=== PATIENT | male | born 1950 | race Caucasian/White ===

== ENCOUNTER 2022-06-04 19:43 | Inpatient (IN) ==
[2022-06-04] MEDS ORDERED: ALBUT/IPRATROP 3MG/0.5MG NEB 3 ML VIAL NEB ONE (20:25)
[2022-06-04] MEDS ORDERED: methylPREDNISolone 125 MG/2 ML VIAL IV STA (20:25)
--- NOTE | 2022-06-04 20:27 | XRay Report ---
XR chest 1V portable HISTORY: Shortness of breath. Chest pain, nonspecific COMPARISON: Chest 07/31/2010. FINDINGS: There are suture material noted within the right lung apex. No pneumothorax. The cardiac si lhouette is normal in size. Calcified granuloma within the right lower lobe. The lungs are hyperexpan ded with apical predominant emphysematous changes. Symmetric hazy densities within the upper lobes is likely due to overlying soft tissue. Otherwise, no new focal lung consolidations to suggest a pneumo april. No evidence for pulmonary edema. No pleural effusions. IMPRESSION: 1. Hyperexpanded lungs with emphysematous changes. 2. Postoperative changes noted within the right lung apex. No definite pneumothorax. ACT 112: Negative or not required by law. Electronically signed by: Jesse Stubbs M.D. 06/04/2022 8:24 PM
[2022-06-04 20:40] LABS: Basophils # (auto) 0.04 K/uL (0-0.2); Basophils % (auto) 0.5 %; Eosinophils # (auto) 0.06 K/uL (0-0.50); Eosinophils % (auto) 0.7 %; Hematocrit (blood only) 42.9 % (42.0-52.0); Hemoglobin 14.8 g/dl (14.0-18.0); Immature Granulocytes # (auto) 0.03 K/uL (0.01-0.20); Immature Granulocytes % (auto) 0.4 %; Lymphocytes % (auto) 8.6 %; Mean Corpuscular Hemoglobin 32.2 pg (25.0-34.0); Mean Corpuscular Hgb Conc 34.5 g/dL (32.0-36.0); Mean Corpuscular Volume 93.5 fL (80.0-100.0); Monocytes # (auto) 0.35 K/uL (0.11-0.59); Monocytes % (auto) 4.3 %; Neutrophils # (auto) 6.98 K/uL (1.40-6.50); Neutrophils % (auto) 85.5 %; Platelet Count 141 K/uL (130-400); RDW Coefficient of Variation 12.1 % (11.5-14.5); RDW Standard Deviation 41.8 fL (36.4-46.3); Red Blood Count 4.59 M/uL (4.70-6.10); White Blood Count 8.16 K/ul (4.8-10.8)
[2022-06-04 20:57] LABS: Anion Gap 9 (3-11); BUN Creatinine Ratio 15.6 (10-20); Blood Urea Nitrogen 15 mg/dl (6-23); Calcium 8.9 mg/dl (8.6-10.3); Carbon Dioxide 26 mmol/L (21-32); Chloride 102 mmol/L (98-107); Est GFR (African American) 91.8 ml/min; Est GFR (Non-African American) 79.2 ml/min; Glucose 109 mg/dl (70-99(Fasting)); Lipase 23 U/L (11-82); Potassium 4.2 mmol/L (3.5-5.1); Sodium 137 mmol/L (136-145)
[2022-06-04 21:04] LABS: Troponin I High Sensitivity 9.3 pg/ml (0-20)
[2022-06-04 21:15] LABS: Base Excess VBG 3.7 mEq/L; HCO3 VBG 30 mmol/L; Oxygen Saturation VBG 75.8 %; PCO2 VBG 49 mmHg (38-50); PO2 VBG 45 mmHg; pH VBG 7.39 (7.36-7.41)
--- NOTE | 2022-06-04 23:30 | Emergency Department Note ---
History of Present Illness General Chief Complaint: Shortness of Breath/Dyspnea Time Seen by Provider: 06/04/22 19:53 History of Present Illness Provider Complaint: shortness of breath Onset (ago): day(s) (1) Severity: severe Consistency/Duration: + progressively worsening Relieved By: + nothing Exacerbated By: + exertion and + coughing Context: + occurred during exertion Known history of: COPD and asthma Associated symptoms: + cough, + wheezing, + sputum production and + chest congestion Treatment prior to arrival: NIPPV Related Data Home oxygen amount: none (Patient was 70% on room air when EMS arrived per EMS) Home Medications Medication Instructions Recorded Confirmed Type None (Patient States No Home Meds) ##0 07/22/10 History Acetaminophen (Tylenol) 650 mg PO Q4H PRN #100 Tabs 08/01/10 Rx Albuterol (Proventil Hfa) 1 - 2 puff inhalation Q4HR PRN #1 08/01/10 Rx unit Ipratropium/Albuterol (Combivent *) 2 puff inhalation QID #1 unit 08/01/10 Rx Nicotine (Nicoderm Cq 14MG Patch) 1 patch transdermal QAM #30 patches 08/01/10 Rx OXYCODONE/ACETAMINOPHEN 5MG/325MG 1 - 2 tabs PO Q3-4HR PRN #30 Tabs 08/01/10 Rx (PERCOCET 5MG/325MG) Sodium Chloride ([place] Nasal) 1 spry NA PRN PRN #1 unit 08/01/10 Rx Allergies Allergy/AdvReac Type Severity Reaction Status Date / Time No Known Allergies Allergy Unverified 06/04/22 23:02 Past Med/Surg History Medical History (Updated 06/04/22 @ 23:30 by Charles Eddy) COPD (chronic obstructive pulmonary disease) No pertinent family history Surgical History (Updated 06/04/22 @ 23:23 by Charles Eddy) No pertinent past surgical history Social History Smoking Status: Current every day smoker Tobacco Type: Cigarettes Preferred Language: Macedonian Feels Safe at Home: Yes Physical Exam Vital Signs: Vital Signs - 24 hr 06/04/22 19:59 06/04/22 19:59 06/04/22 19:59 Temperature 36.9 C Temperature Source Oral Pulse Rate 121 H Pulse Rate [Apical ] Pulse Rhythm [Apic al] Pulse Strength [Ap ical] Respiratory Rate 28 H Respiratory Effort / Characteristics Short of Breath SO B on Exertion Respiratory Depth Respiratory Patter n Blood Pressure 148/96 H Blood Pressure [Ri ght Arm] Blood Pressure Blank n 113 Blood Pressure Blank n [Right Arm] Pulse Oximetry 96 96 Oxygen Delivery Me thod BiPAP BiPAP Fraction of Inspir ed Oxygen 40 40 SaO2/FiO2 Ratio 240 Sepsis Recent Feve r Within 48 Hours No Sepsis New/Unexpla ined Change in Men romaine Status No Sepsis Action Take n by Nursing Physician Notified 06/04/22 20:09 06/04/22 20:10 06/04/22 20:59 Temperature Temperature Source Pulse Rate Pulse Rate [Apical ] 122 H 104 H Pulse Rhythm [Apic al] Regular Pulse Strength [Ap ical] Normal Respiratory Rate 19 25 H Respiratory Effort / Characteristics Non-Labored Sponta neous Non-Labored Sponta neous Respiratory Depth Normal Respiratory Patter n Blood Pressure Blood Pressure [Ri ght Arm] 124/94 Blood Pressure Blank n Blood Pressure Blank n [Right Arm] 104 Pulse Oximetry 96 97 98 Oxygen Delivery Me thod BiPAP Nasal CPAP BiPAP Fraction of Inspir ed Oxygen 40 40 SaO2/FiO2 Ratio 240 Sepsis Recent Feve r Within 48 Hours Sepsis New/Unexpla ined Change in Men romaine Status Sepsis Action Take n by Nursing 06/04/22 21:07 06/04/22 20:39 Temperature Temperature Source Pulse Rate 104 H 120 H Pulse Rate [Apical ] Pulse Rhythm [Apic al] Pulse Strength [Ap ical] Respiratory Rate 26 H Respiratory Effort / Characteristics Spontaneous Respiratory Depth Normal Respiratory Patter n Tachypnea Blood Pressure Blood Pressure [Ri ght Arm] Blood Pressure Blank n Blood Pressure Blank n [Right Arm] Pulse Oximetry 96 Oxygen Delivery Me thod Fraction of Inspir ed Oxygen 40 SaO2/FiO2 Ratio Sepsis Recent Feve r Within 48 Hours Sepsis New/Unexpla ined Change in Men romaine Status Sepsis Action Take n by Nursing Physical Exam: Physical Exam GENERAL: Patient on BiPAP. HENT: Exam performed. - Head: Normocephalic and atraumatic. EYES: Conjunctivae and EOM are normal. Right eye exhibits no discharge. Left eye exhibits no discharge. No scleral icterus. NECK: Normal range of motion. Neck supple. CV: Normal rate, regular rhythm, normal heart sounds and intact distal pulses. There is no peripheral edema. Palpable radial pulses bue. PULM/CHEST: Diffuse expiratory wheezes. SKIN: Skin is warm and dry. He is not diaphoretic. Course Course 1952: The patient was evaluated in room B3. A complete history and physical exam was performed Cardiac monitoring: An order was placed for continuous cardiac monitoring. The monitor shows a rate of 100 with sinus rhythm interpreted by me Patient was continued on BiPAP. 2214: Vital signs stable on BiPAP. Status post 1 hour DuoNeb patient's respira tory rate has improved. [facility] Chest x-ray shows no infiltrate and labs including VBG within normal limits. Administered Medications Discontinued Medications Albuterol (Albut/Ipratrop 3mg/0.5mg Neb 3 Ml Vial) 12 ml NEB ONE ONE; Protocol Stop: 06/04/22 20:26 Last Admin: 06/04/22 20:57 Dose: 12 ml Documented By: AFTAB Methylprednisolone (Methylprednisolone 125 Mg/2 Ml Vial) 125 mg IV NOW STA Stop: 06/04/22 20:26 Last Admin: 06/04/22 20:40 Dose: 125 mg Documented By: TAMMY Medical Decision Making Laboratory Data Attestation: I reviewed the patient's lab results. 06/04/22 20:00 06/04/22 20:00 Lab Results 06/04/22 06/04/22 06/04/22 Range/Units 20:00 20:00 20:10 WBC 8.16 (4.8-10.8) K/ul RBC 4.59 L (4.70-6.10) M/uL Hgb 14.8 (14.0-18.0) g/dl Hct 42.9 (42.0-52.0) % MCV 93.5 (80.0-100.0) fL MCH 32.2 (25.0-34.0) pg MCHC 34.5 (32.0-36.0) g/dL RDW Std Deviation 41.8 (36.4-46.3) fL RDW Coeff of [place] 12.1 (11.5-14.5) % Plt Count 141 (130-400) K/uL MPV 10.0 (9.4-12.4) fL Immature Gran % (Auto) 0.4 % Neut % (Auto) 85.5 % Lymph % (Auto) 8.6 % [place] % (Auto) 4.3 % Eos % (Auto) 0.7 % Baso % (Auto) 0.5 % Neut # (Auto) 6.98 H (1.40-6.50) K/uL Lymph # (Auto) 0.70 L (1.2-3.4) K/uL [place] # (Auto) 0.35 (0.11-0.59) K/uL Eos # (Auto) 0.06 (0-0.50) K/uL Baso # (Auto) 0.04 (0-0.2) K/uL Immature Gran # (Auto) 0.03 (0.01-0.20) K/uL VBG pH (7.36-7.41) VBG pCO2 (38-50) mmHg VBG pO2 mmHg VBG HCO3 mmol/L VBG O2 Saturation % VBG Base Excess mEq/L Sodium 137 (136-145) mmol/L Potassium 4.2 (3.5-5.1) mmol/L Chloride 102 (98-107) mmol/L Carbon Dioxide 26 (21-32) mmol/L Anion Gap 9 (3-11) BUN 15 (6-23) mg/dl Creatinine 0.96 (0.6-1.4) mg/dl Est Cr Clr Drug Dosing Not Reportable Est GFR ( Amer) 91.8 ml/min Est GFR (Non-Af Amer) 79.2 ml/min BUN/Creatinine Ratio 15.6 (10-20) Glucose 109 H (70-99(Fasting)) mg/dl Calcium 8.9 (8.6-10.3) mg/dl Troponin I High Sens 9.3 (0-20) pg/ml Lipase 23 (11-82) U/L SARS-CoV-2, RNA, NAAT NEGATIVE (NEGATIVE) 06/04/22 Range/Units 21:06 WBC (4.8-10.8) K/ul RBC (4.70-6.10) M/uL Hgb (14.0-18.0) g/dl Hct (42.0-52.0) % MCV (80.0-100.0) fL MCH (25.0-34.0) pg MCHC (32.0-36.0) g/dL RDW Std Deviation (36.4-46.3) fL RDW Coeff of [place]ion (11.5-14.5) % Plt Count (130-400) K/uL MPV (9.4-12.4) fL Immature Gran % (Auto) % Neut % (Auto) % Lymph % (Auto) % [place] % (Auto) % Eos % (Auto) % Baso % (Auto) % Neut # (Auto) (1.40-6.50) K/uL Lymph # (Auto) (1.2-3.4) K/uL [place] # (Auto) (0.11-0.59) K/uL Eos # (Auto) (0-0.50) K/uL Baso # (Auto) (0-0.2) K/uL Immature Gran # (Auto) (0.01-0.20) K/uL VBG pH 7.39 (7.36-7.41) VBG pCO2 49 (38-50) mmHg VBG pO2 45 mmHg VBG HCO3 30 mmol/L VBG O2 Saturation 75.8 % VBG Base Excess 3.7 mEq/L Sodium (136-145) mmol/L Potassium (3.5-5.1) mmol/L Chloride (98-107) mmol/L Carbon Dioxide (21-32) mmol/L Anion Gap (3-11) BUN (6-23) mg/dl Creatinine (0.6-1.4) mg/dl Est Cr Clr Drug Dosing Est GFR ( Amer) ml/min Est GFR (Non-Af Amer) ml/min BUN/Creatinine Ratio (10-20) Glucose (70-99(Fasting)) mg/dl Calcium (8.6-10.3) mg/dl Troponin I High Sens (0-20) pg/ml Lipase (11-82) U/L SARS-CoV-2, RNA, NAAT (NEGATIVE) Imaging Data Radiologist's Impression: Chest X-Ray 06/04/22 20:06 XR chest 1V portable HISTORY: Shortness of breath. Chest pain, nonspecific COMPARISON: Chest 07/31/2010. FINDINGS: There are suture material noted within the right lung apex. No pneumothorax. The cardiac silhouette is normal in size. Calcified granuloma within the right lower lobe. The lungs are hyperexpanded with apical predominant emphysematous changes. Symmetric hazy densities within the upper lobes is likely due to overlying soft tissue. Otherwise, no new focal lung consolidations to suggest a pneumonia. No evidence for pulmonary edema. No pleural effusions. IMPRESSION: 1. Hyperexpanded lungs with emphysematous changes. 2. Postoperative changes noted within the right lung apex. No definite pneumothorax. ACT 112: Negative or not required by law. Electronically signed by: Jesse Stubbs M.D. 06/04/2022 8:24 PM [facility] Narrative 1952: The patient was evaluated in room B3. A complete history and physical exam was performed Cardiac monitoring: An order was placed for continuous cardiac monitoring. The monitor shows a rate of 100 with sinus rhythm interpreted by me Patient was continued on BiPAP. 2214: Vital signs stable on BiPAP. Status post 1 hour DuoNeb patient's respiratory rate has improved. [facility] Chest x-ray shows no infiltrate and labs including VBG within normal limits. Impression & Plan COPD (chronic obstructive pulmonary disease) Critical Care Time Critical Care Time: Yes Total Critical Care Time: 71 I have personally spent greater than 71 minutes of critical care time in the direct management of this patient. This includes bedside care, interpretation of diagnostic studies, and testing, discussion with consultants, patient, and family members, and other required patient management activities. This 71 minutes is in excess of all separately billable procedures. Discharge Plan Visit Data Chief Complaint: Shortness of Breath/Dyspnea ED Provider: Charles Eddy Discharge Problem: COPD (chronic obstructive pulmonary disease) Patient Disposition: Admitted As Inpatient Forms Stand Alone Forms: My [facility] Prescriptions Prescriptions: No Action None (Patient States No Home Meds) . Qty: 0 Acetaminophen (Tylenol) 325 MG tablet 650 mg PO Q4H PRNQty: 100 0RF Nicotine (Nicoderm Cq 14MG Patch) TRANSDERM SYS 1 patch Transdermal QAM Qty: 30 0RF OXYCODONE/ACETAMINOPHEN 5MG/325MG (PERCOCET 5MG/325MG) tablet 1 - 2 tabs PO Q3-4HR PRN Qty: 30 0RF Rx Instructions: PAIN Sodium Chloride ([place] Nasal) SPRAY 1 spry NA PRN PRNQty: 1 1RF Albuterol (Proventil Hfa) AEROSOL,SOLN 1 - 2 puff Inhalation Q4HR PRN Qty: 1 1RF Ipratropium/Albuterol (Combivent *) inhaler 2 puff Inhalation QID Qty: 1 2RF Referrals Referrals: Fawad Sheets MD [Primary Care Provider] -
[2022-06-05] MEDS ORDERED: POLYETHYLENE (MIRALAX) 17 GM PACK PO PRN (02:40)
[2022-06-05] MEDS ORDERED: DOXYCYCLINE HYCLATE 100 MG CAP PO STA (02:40)
[2022-06-05] MEDS ORDERED: NITROGLYCERIN SL 0.4 MG/TAB TAB SL PRN (02:40)
[2022-06-05] MEDS ORDERED: ALBUTEROL HFA 8 GM INHALER INH PRN (02:40)
[2022-06-05] MEDS ORDERED: Patient's HEIGHT &/or WEIGHT Needed SCH (03:00)
[2022-06-05] MEDS: MELATONIN 3 MG TAB PO PRN ×2 (03:02→20:16)
[2022-06-05] MEDS: methylPREDNISolone 40 MG in SYRINGE 0 ML IV SCH ×3 (06:10→21:23)
[2022-06-05 07:00] LABS: Hematocrit (blood only) 39.5 % (42.0-52.0); Hemoglobin 13.8 g/dl (14.0-18.0); Mean Corpuscular Hemoglobin 32.1 pg (25.0-34.0); Mean Corpuscular Hgb Conc 34.9 g/dL (32.0-36.0); Mean Corpuscular Volume 91.9 fL (80.0-100.0); Mean Platelet Volume 10.3 fL (9.4-12.4); Platelet Count 136 K/uL (130-400); RDW Coefficient of Variation 12.2 % (11.5-14.5); RDW Standard Deviation 40.9 fL (36.4-46.3); White Blood Count 10.55 K/ul (4.8-10.8)
[2022-06-05 07:08] LABS: BUN Creatinine Ratio 16.1 (10-20); Calcium 8.9 mg/dl (8.6-10.3); Creatinine Clr Calc Pharmacy 69.2 ml/min; Est GFR (African American) 100.6 ml/min; Est GFR (Non-African American) 86.8 ml/min; Magnesium 1.5 mg/dl (1.7-2.4); Potassium 4.2 mmol/L (3.5-5.1)
--- NOTE | 2022-06-05 07:18 | History and Physical Report ---
DATE OF ADMISSION: 06/05/2022. CHIEF COMPLAINT: Shortness of breath. HISTORY OF PRESENT ILLNESS: A 71-year-old male with past medical history significant for hyperlipidemia, COPD, ongoing tobacco abuse, complaints of shortness of breath. The patient does have some cold-like symptoms for the last few days, with dry cough. No fever, but today he got very severely short of breath, he was huffing and puffing, and he was brought in. When he was brought in he was saturating at 70%. He was placed on BiPAP, currently is taken off BiPAP and is resting comfortably. He is able to give his history, in the room. Denies any fevers, no nausea, had some headache and some sore throat when the BIPAP mask was on, but now he is feeling better. Denies any blurred visions, no earache. Appetite is down. No difficulty swallowing. He has some right sided chest discomfort. He says whenever his COPD acts up, he always has some chest discomfort on right side where some lung resection was done in the past. No abdominal pain. Normal bowel and bladder movements. No swelling in the legs. ALLERGIES: No known drug allergies. PAST MEDICAL HISTORY: As mentioned above. PAST SURGICAL HISTORY: Colonoscopy, left side of neck lump removed at age of 9 or 10, thoracoscopy with lung wedge biopsy for right upper lobe bleb formation x3, mechanical and chemical pleurodesis, lysis of apical adhesions in 2010. MEDICATIONS: The patient is on Tylenol, guanfacine 1 capsule p.o. t.i.d. p.r.n., albuterol 2 puffs inhalation every 4 hours p.r.n., ibuprofen p.r.n., Spiriva inhaler 1 capsule inhalation daily. FAMILY HISTORY: Significant for father has alcoholism. Mother has heart disorder. SOCIAL HISTORY: . He still smokes 5-6 cigarettes daily. Alcohol occasional. No drug use. REVIEW OF SYSTEMS: As per HPI. Rest of review of systems is negative. PHYSICAL EXAMINATION: GENERAL: The patient is of moderate build, not in acute distress. VITAL SIGNS: Temperature 36.9, pulse 99, respiratory rate 22, blood pressure 115/70, oxygen 99%. HEENT: Pupils equal, round and reactive to light. Oral mucosa dry. NECK: No JVD or neck masses. CARDIOVASCULAR: S1 and S2 heard. Regular rate and rhythm. No murmur, no gallop. RESPIRATORY SYSTEM: Normal AP diameter. Diminished bilateral breath sounds. No obvious wheezing or crackles. ABDOMEN: Soft, bowel sounds present, nontender, no distention. CENTRAL NERVOUS SYSTEM: Alert and oriented. Speech is clear. No facial droop. Obeys simple commands. Insight is okay. Moves extremities. EXTREMITIES: No edema, no erythema. LABORATORY DATA: WBC 8.1, hemoglobin 14.8, hematocrit 42.9, platelets 141. Venous blood gas, pH of 7.39, pCO2 of 49. Sodium 137, potassium 4.2, chloride 102, bicarbonate 26, BUN 15, creatinine 0.9, serum glucose 109, calcium 8.9. Troponin I high sensitivity 9.3. Lipase 23. SARS-CoV-2 rapid test negative. IMAGING DATA: Chest x-ray, no acute findings. ASSESSMENT AND PLAN: This is a 71-year-old male who presents with shortness of breath and hypoxia and chronic obstructive pulmonary disease exacerbation. 1. Shortness of breath and hypoxia, requiring oxygen, most likely secondary to chronic obstructive pulmonary disease exacerbation. Continue with IV Solu- Medrol 40 mg t.i.d., DuoNeb around the clock and p.r.n. p.o. doxycycline. Monitor in [facility] app tele . Two step prior to discharge. 2. Ongoing tobacco abuse, needs counseling. 3. History of hyperlipidemia: Currently not on any medications. Needs followup. 4. Deep venous thrombosis prophylaxis, Lovenox. DISPOSITION: Closely monitor in the med tele. PT/OT prior to discharge. Social service to help with discharge planning. Job ID: [id number] [facility]
[2022-06-05] MEDS: ALBUT/IPRATROP 3MG/0.5MG NEB 3 ML VIAL NEB SCH ×4 (07:30→19:17)
[2022-06-05 07:33] LABS: Basophils # (auto) 0.02 K/uL (0-0.2); Basophils % (auto) 0.2 %; Immature Granulocytes # (auto) 0.05 K/uL (0.01-0.20); Immature Granulocytes % (auto) 0.5 %; Lymphocytes # (auto) 0.53 K/uL (1.2-3.4); Monocytes # (auto) 0.34 K/uL (0.11-0.59); Monocytes % (auto) 3.2 %; Neutrophils # (auto) 9.61 K/uL (1.40-6.50); Neutrophils % (auto) 91.1 %; RBC Morphology Unremarkable
--- NOTE | 2022-06-05 07:38 | Electrocardiogram Report ---
Test Reason : Blood Pressure : / mmHG Vent. Rate : 121 BPM Atrial Rate : 121 BPM P-R Int : 138 ms QRS Dur : 070 ms QT Int : 296 ms P-R-T Axes : 085 087 056 degrees QTc Int : 420 ms Poor data quality, interpretation may be adversely affected Sinus tachycardia Biatrial enlargement Incomplete right bundle branch block Abnormal ECG When compared with ECG of 23-JUL-2010 08:26, Vent. rate has increased BY [address] no longer elevated in Anterior leads Nonspecific T wave abnormality no longer evident in Inferior leads Confirmed by Rober Mcclure ([id number]) on 06/05/2022 7:38:14 AM Referred By: REFERRED SELF Confirmed By:Ben Mcclure
[2022-06-05] MEDS: ENOXAPARIN INJ 40 MG/0.4 ML SYR SQ SCH (08:00)
[2022-06-05] MEDS: UMECLIDINIUM BROMIDE 62.5MCG/BLISTER 7 PUFFS/INHALER INH SCH (08:00)
[2022-06-05] MEDS: DOXYCYCLINE HYCLATE 100 MG CAP PO SCH ×2 (08:01→20:18)
--- NOTE | 2022-06-05 11:41 | Communication Note ---
Date of Service: June 05, 2022 Patient seen and examined Reports shortness of breath is improving. Right chest pain is resolved at this time. Stated this usually happens with his exacerbations in the past Reports congestion. Denied headache, fevers, chills Exam notable for diminished breath sounds, patient on 4l nasal cannula Reviewed CXR. Emphysema, post op changes Continue inhalers, nebs and steroid for COPD exacerbation Wean oxygen as tolerated. Will need 2 step prior to dc Other plans as detailed in H&P this morning
[2022-06-05] MEDS: ACETAMINOPHEN 325 MG TAB PO PRN (20:17)
[2022-06-05] MEDS: MAGNESIUM SULFATE / D5W 1 GM/100 ML BAG IV SCH ×2 (22:05→23:54)
[2022-06-06] MEDS: methylPREDNISolone 40 MG in SYRINGE 0 ML IV SCH ×3 (05:44→20:19)
[2022-06-06] MEDS: ALBUT/IPRATROP 3MG/0.5MG NEB 3 ML VIAL NEB SCH ×4 (06:11→20:14)
[2022-06-06 07:31] LABS: Hematocrit (blood only) 46.7 % (42.0-52.0); Hemoglobin 16.2 g/dl (14.0-18.0); Mean Corpuscular Hemoglobin 32.1 pg (25.0-34.0); Mean Corpuscular Hgb Conc 34.7 g/dL (32.0-36.0); Mean Corpuscular Volume 92.5 fL (80.0-100.0); Platelet Count 135 K/uL (130-400); RDW Coefficient of Variation 12.3 % (11.5-14.5); RDW Standard Deviation 41.9 fL (36.4-46.3); Red Blood Count 5.05 M/uL (4.70-6.10); White Blood Count 11.43 K/ul (4.8-10.8)
[2022-06-06 07:47] LABS: BUN Creatinine Ratio 27.5 (10-20); Calcium 9.7 mg/dl (8.6-10.3); Est GFR (African American) 104.2 ml/min; Est GFR (Non-African American) 89.9 ml/min; Potassium 4.6 mmol/L (3.5-5.1)
[2022-06-06] MEDS: DOXYCYCLINE HYCLATE 100 MG CAP PO SCH ×2 (09:11→20:19)
[2022-06-06] MEDS: ENOXAPARIN INJ 40 MG/0.4 ML SYR SQ SCH (09:11)
[2022-06-06] MEDS: UMECLIDINIUM BROMIDE 62.5MCG/BLISTER 7 PUFFS/INHALER INH SCH (09:11)
[2022-06-06] MEDS: ACETAMINOPHEN 325 MG TAB PO PRN ×2 (09:16→20:18)
[2022-06-06] MEDS: LORATADINE 10 MG TAB PO SCH (10:11)
[2022-06-06] MEDS: ALBUT/IPRATROP 3MG/0.5MG NEB 3 ML VIAL NEB PRN (11:03)
--- NOTE | 2022-06-06 11:47 | Hospitalist Progress Note ---
Date of Service June 06, 2022 Assessment & Plan (1) COPD exacerbation: (2) Acute respiratory failure with hypoxia: Plan: Presented with SOB Noted to be hypoxic CXR did not show any acute findings Continue duoneb qid Continue nebs and incruse ellipta Continue iv steroid today. Change to prednisone tomorrow Continue doxycycline (3) DVT prophylaxis: Plan: Lovenox sq I spent a total of 45 minutes coordinating, documenting and providing care for this patient excluding time spent in performance of separately billed services Admission and Anticipated Discharge Date Admission Date: June 05, 2022 Subjective Patient seen and examined. Reported that he had an episode of panic attack yesterday. Reports feeling better today. Still reports some shortness of breath and wheezing. Reports cough. Denies any chest pain, nausea, vomiting Denies any fevers, chills Denied dysuria, frequency, urgency, diarrhea constipation Physical Exam Constitutional: + well hydrated; no acute distress Eyes: PERRL, conjunctivae normal, anicteric sclerae ENMT: external ear and nose normal, oropharynx normal Respiratory: normal respiratory effort; no respiratory distress Generalized wheezing On nasal cannula Cardiovascular: Rate/Rhythm: regular rate and regular rhythm S1 S2 Gastrointestinal (Abdomen): normal bowel sounds, soft, nontender, no hepatosplenomegaly Musculoskeletal: no cyanosis or clubbing, extremities motor strength 5/5 Neurologic: PERRL, EOMI, accommodation nl, no face palsy, no dysarthria Psychiatric: A+Ox3, euthymic affect Results & Data Results & Data Vital Signs (Past 12 Hours) Vital Signs Temp Pulse Pulse Resp BP BP Pulse Ox 06/06/22 11:03 100 H 20 95 06/06/22 06:01 105 H 06/06/22 09:42 107 H 22 93 06/06/22 07:45 36.4 C L 104 H 20 134/86 97 06/06/22 07:30 06/06/22 06:11 106 H 22 96 06/06/22 03:23 36.9 C 95 H 20 127/80 93 06/05/22 23:52 36.5 C 95 H 20 121/74 92 O2 Del Method O2 Flow Rate 06/06/22 11:03 Nasal Cannula 3 06/06/22 06:01 06/06/22 09:42 Nasal Cannula 3 06/06/22 07:45 Nasal Cannula 3 06/06/22 07:30 Nasal Cannula 3 06/06/22 06:11 Nasal Cannula 3 06/06/22 03:23 Nasal Cannula 2 06/05/22 23:52 Nasal Cannula 2 Laboratory Results Abnormal lab results 06/06/22 06/06/22 Range/Units 06:54 06:54 WBC 11.43 H (4.8-10.8) K/ul BUN/Creatinine Ratio 27.5 H (10-20) Glucose 156 H (70-99(Fasting)) mg/dl
[2022-06-06] MEDS: MELATONIN 3 MG TAB PO PRN (20:19)
[2022-06-07 06:52] LABS: Hematocrit (blood only) 43.5 % (42.0-52.0); Hemoglobin 14.8 g/dl (14.0-18.0); Mean Platelet Volume 10.1 fL (9.4-12.4); Platelet Count 143 K/uL (130-400); RDW Coefficient of Variation 12.1 % (11.5-14.5); RDW Standard Deviation 42.2 fL (36.4-46.3); Red Blood Count 4.63 M/uL (4.70-6.10); White Blood Count 9.09 K/ul (4.8-10.8)
[2022-06-07] MEDS: ALBUT/IPRATROP 3MG/0.5MG NEB 3 ML VIAL NEB SCH ×4 (07:03→19:29)
[2022-06-07] MEDS: ENOXAPARIN INJ 40 MG/0.4 ML SYR SQ SCH (08:38)
[2022-06-07] MEDS: UMECLIDINIUM BROMIDE 62.5MCG/BLISTER 7 PUFFS/INHALER INH SCH (08:38)
[2022-06-07] MEDS: LORATADINE 10 MG TAB PO SCH (08:39)
[2022-06-07] MEDS: DOXYCYCLINE HYCLATE 100 MG CAP PO SCH ×2 (08:39→21:00)
[2022-06-07] MEDS ORDERED: predniSONE 50 MG TAB PO SCH (09:00)
[2022-06-07 09:38] LABS: Calcium 9.4 mg/dl (8.6-10.3); Potassium 4.7 mmol/L (3.5-5.1)
[2022-06-07 09:44] LABS: BUN Creatinine Ratio 27.5 (10-20); Est GFR (African American) 104.2 ml/min; Est GFR (Non-African American) 89.9 ml/min
[2022-06-07] MEDS ORDERED: hydrOXYzine HCl 25 MG TAB PO PRN (10:37)
--- NOTE | 2022-06-07 11:04 | Hospitalist Progress Note ---
Date of Service June 07, 2022 Assessment & Plan (1) COPD exacerbation: (2) Acute respiratory failure with hypoxia: Plan: Presented with SOB Noted to be hypoxic CXR did not show any acute findings Continue duoneb qid Continue nebs and incruse ellipta Pulm recs noted Fluticasone/vilanterol added Will ensure dc on LABA/LAMA/ICS combination Wena oxygen as tolerated Continue po prednisone Continue doxycycline Provided more smoking cessation counseling Hydroxyzine prn anxiety (3) DVT prophylaxis: Plan: Lovenox sq I spent a total of 45 minutes coordinating, documenting and providing care for this patient excluding time spent in performance of separately billed services Admission and Anticipated Discharge Date Admission Date: June 05, 2022 Subjective Patient seen and examined. Still reports wheezing and shortness of breath. Denies any cough today. Reports occasional chest pain when wheezing becomes severe. Reports anxiety associated with this. Denied fevers, chills, nausea, vomiting, abdominal pain Denies dysuria, frequency or urgency Physical Exam Constitutional: + well hydrated; no acute distress Eyes: PERRL, conjunctivae normal, anicteric sclerae ENMT: external ear and nose normal, oropharynx normal Respiratory: normal respiratory effort; no respiratory distress On nasal cannula, wheezing, rhonchi globally Cardiovascular: Rate/Rhythm: regular rate and regular rhythm S1 S2 Gastrointestinal (Abdomen): normal bowel sounds, soft, nontender, no hepatosplenomegaly Musculoskeletal: no cyanosis or clubbing, extremities motor strength 5/5 Neurologic: PERRL, EOMI, accommodation nl, no face palsy, no dysarthria Results & Data Results & Data Vital Signs (Past 12 Hours) Vital Signs Temp Pulse Pulse Resp BP Pulse Ox O2 Del Method 06/07/22 11:03 36.8 C 111 H 22 172/95 H 90 Nasal Cannula 06/07/22 10:30 108 H 24 98 Nasal Cannula 06/07/22 08:53 Nasal Cannula 06/07/22 07:29 103 H 22 97 Nasal Cannula 06/07/22 06:02 108 H 06/07/22 07:16 36.8 C 117 H 24 159/85 H 99 Nasal Cannula 06/07/22 06:38 105 H 06/07/22 02:56 36.8 C 95 H 20 135/85 98 Nasal Cannula 06/06/22 23:16 36.4 C L 107 H 20 147/79 H 99 Nasal Cannula O2 Flow Rate 06/07/22 11:03 3 06/07/22 10:30 3 06/07/22 08:53 3 06/07/22 07:29 4 06/07/22 06:02 06/07/22 07:16 3 06/07/22 06:38 06/07/22 02:56 4 06/06/22 23:16 3 Laboratory Results Abnormal lab results 06/07/22 06/07/22 Range/Units 05:53 05:53 RBC 4.63 L (4.70-6.10) M/uL Chloride 97 L (98-107) mmol/L BUN/Creatinine Ratio 27.5 H (10-20) Glucose 140 H (70-99(Fasting)) mg/dl
--- NOTE | 2022-06-07 14:30 | Pulmonary Consultation ---
Date of Consultation June 07, 2022 Assessment & Plan (1) COPD exacerbation: Continue with oral corticosteroids for a 7-day course. Decrease to 40 mg a day starting tomorrow. We will add ICS/LABA in addition to LAMA inhaler. When able to discharge home, please send home on ICS/LABA/LAMA combination. Give albuterol neb now given wheezing. Discussed with RT and nursing in person. We will need PFTs and low-dose CT chest established as an outpatient. May consider inpatient CT chest if symptoms do not improve. Obtain morning ABG to evaluate for chronic hypercapnia in the setting of elevated bicarbonate and severely appearing emphysematous lungs on chest x-ray. He can follow-up with me as an outpatient. (2) Tobacco abuse counseling: Strongly encouraged complete smoking cessation. (3) Acute respiratory failure with hypoxia: Continue to wean oxygen to maintain saturations of 88 to 92%. Consider obtaining echocardiogram to evaluate for cor pulmonale and other pathology. History of Present Illness Reason for Consultation: COPD exacerbation Attending Physician: Susana Cisse MD History of Present Illness 71-year-old male presented to the ER 06/04/2022 due to shortness of breath which was progressively worsening. He had cough and sputum production. He was hyp oxic with saturations in the 70s and placed on BiPAP with improvement. He is on DuoNebs 4 times daily. He is also on Incruse Ellipta. He is completing a course of doxycycline and has been transition from methylprednisolone to prednisone 50 mg. Chest x-ray completed 06/04/2022 revealed hyperexpanded lungs with emphysematous changes. Postoperative changes noted at the apex of the right lung. He previously underwent a wedge resection for upper lobe predominant emphysematous blebs. He also underwent mechanical and chemical pleurodesis in 2010. He is an active smoker and smokes about quarter of a pack of cigarettes a day. Labs on admission were largely revealing. No significant eosinophilia noted. No leukocytosis. Serum bicarbonate levels have been elevated up to 31. VBG obtained on admission revealed pH 7.39 and a PCO2 of 49. When I came to interview the patient, he was changing his close. He has had very significant wheezing throughout the day and he was having very profound wheezing during my interview. It took him several minutes to recover with supplemental oxygen at a flow rate of 3 L/min. His is at bedside as well. He notes that this has been going on for several days now. His symptoms really became worse around Tuesday which prompted his hospitalization. He notes that he uses Spiriva as an outpatient. He denies any hospitalizations for many years. He notes that he has been smoking for the past 50 years roughly 1 pack/day. He denies any significant cough and sputum production at present. He notes severe dyspnea with minimal activity. At baseline, he is able to exercise and is fairly functional. Allergies Allergy/AdvReac Type Severity Reaction Status Date / Time No Known Allergies Allergy Verified 06/04/22 23:40 Home Medications Medication Instructions Recorded Confirmed Type Otc Cold And Cough Med 1 tab PO QID PRN Cold Symptoms 06/04/22 06/04/22 History acetaminophen 325 mg-guaifenesin 1 cap PO TID PRN Congestion 06/04/22 06/04/22 History 200 mg capsule albuterol sulfate 90 mcg/actuation 2 puff inhalation Q4H PRN 06/04/22 06/04/22 History aerosol inhaler Shortness Of Breath Or Wheezing ibuprofen 200 mg tablet 400 mg PO TID PRN Pain 06/04/22 06/04/22 History tiotropium bromide 18 mcg capsule 1 cap inhalation DAILY 06/04/22 06/04/22 History with inhalation device (Spiriva with HandiHaler) Patient History Medical History (Updated 06/07/22 @ 14:27 by Vinicius Kenney MD) COPD (chronic obstructive pulmonary disease) No pertinent family history Tobacco abuse counseling Surgical History (Updated 06/04/22 @ 23:23 by Charles Eddy MD) No pertinent past surgical history Social History Smoking Status: Current every day smoker Tobacco Type: Cigarettes Second Hand Exposure: No; Do You Dip or Chew Tobacco: No; Tobacco Cessation Education Requested by Patient: No Hx Alcohol Use: Yes Alcohol type: beer Hx Substance Use: No Preferred Language: Israeli Communication Ability: Effective Glove Former Required: No Beliefs That Will Affect Care: None Current Living Situation: Spouse Other Information That Helps Us Care for You: No Feels Safe at Home: Yes Safety Concerns: Feels Safe At This Time Assistive Devices: Glasses Review of Systems Review of Systems: All systems reviewed & are unremarkable except as noted in HPI & below Physical Exam Physical Exam: Constitutional: Patient appears to be of their stated age. Patient is in no apparent distress. Patient is well-developed. Eyes: Pupils are equal round and reactive to light. Conjunctivae are normal. Anicteric sclera. Ears nose, mouth and throat: Deferred. Neck: Trachea is midline. Visual inspection is normal. Respiratory: Profound expiratory wheeze with prolonged phase exhalation. Cardiovascular: Tachycardic. No murmurs. No edema. Gastrointestinal: Normal bowel sounds, soft, nontender and nondistended. No hepatosplenomegaly noted. Musculoskeletal: No cyanosis. Patient is able to move all extremities. Strength is 5 out of 5 in the upper and lower extremities. Skin: No rashes, warm dry and intact. Neurologic: No obvious focal neurological deficits seen. Psychiatric: Alert and oriented x3 with a euthymic affect. Results & Data Results & Data Vital Signs (Past 12 Hours) Vital Signs Temp Pulse Pulse Resp BP BP Pulse Ox 06/07/22 12:02 94 06/07/22 12:00 36.3 C L 109 H 20 150/95 H 98 06/07/22 11:09 36.3 C L 111 H 19 157/97 H 95 06/07/22 11:03 36.8 C 111 H 22 172/95 H 90 06/07/22 10:30 108 H 24 98 06/07/22 08:53 06/07/22 07:29 103 H 22 97 06/07/22 06:02 108 H 06/07/22 07:16 36.8 C 117 H 24 159/85 H 99 06/07/22 06:38 105 H 06/07/22 02:56 36.8 C 95 H 20 135/85 98 O2 Del Method O2 Flow Rate 06/07/22 12:02 Nasal Cannula 2 06/07/22 12:00 Nasal Cannula 3 06/07/22 11:09 Nasal Cannula 3 06/07/22 11:03 Nasal Cannula 3 06/07/22 10:30 Nasal Cannula 3 06/07/22 08:53 Nasal Cannula 3 06/07/22 07:29 Nasal Cannula 4 06/07/22 06:02 06/07/22 07:16 Nasal Cannula 3 06/07/22 06:38 06/07/22 02:56 Nasal Cannula 4 PG Care Time/CCT Total # of Minutes Spent Total Time Spent with Patient: Total time spent is greater than 50% in coordination of care (as documented) at patient's floor/unit and/or counseling patient: Coding Level of Care Code 21513 IN/OBS CONSULT LVL 4,60M Diagnoses COPD exacerbation J44.1 Tobacco abuse counseling Z71.6 Acute respiratory failure with hypoxia J96.01
[2022-06-07] MEDS: FLUTICASONE/VILANTEROL 100/25MCG 14 PUFFS/INHALER INH SCH (15:24)
[2022-06-07] MEDS: ACETAMINOPHEN 325 MG TAB PO PRN (21:00)
[2022-06-07] MEDS: MELATONIN 3 MG TAB PO PRN (21:00)
[2022-06-08] MEDS: ALBUT/IPRATROP 3MG/0.5MG NEB 3 ML VIAL NEB SCH ×5 (07:04→22:21)
[2022-06-08] MEDS: ACETAMINOPHEN 325 MG TAB PO PRN (07:32)
[2022-06-08 08:06] LABS: Allen Test POS (Pos); Base Excess ABG 9.1 mEq/L (-9-1.8); HCO3 ABG 36 mmol/L (19-24); Oxygen Saturation ABG 96.6 % (90-95); PCO2 ABG 60 mmHg (35-46); PO2 ABG 78 mmHg (80-95); pH ABG 7.39 (7.35-7.45)
[2022-06-08 08:30] LABS: Hematocrit (blood only) 42.2 % (42.0-52.0); Hemoglobin 14.8 g/dl (14.0-18.0); Mean Corpuscular Hemoglobin 31.7 pg (25.0-34.0); Mean Corpuscular Hgb Conc 35.1 g/dL (32.0-36.0); Mean Corpuscular Volume 90.4 fL (80.0-100.0); Platelet Count 150 K/uL (130-400); RDW Coefficient of Variation 11.9 % (11.5-14.5); RDW Standard Deviation 39.4 fL (36.4-46.3); Red Blood Count 4.67 M/uL (4.70-6.10); White Blood Count 10.53 K/ul (4.8-10.8)
[2022-06-08 08:34] LABS: BUN Creatinine Ratio 29.4 (10-20); Calcium 9.3 mg/dl (8.6-10.3); Creatinine Clr Calc Pharmacy 86.8 ml/min; Est GFR (African American) 111.4 ml/min; Est GFR (Non-African American) 96.1 ml/min; Magnesium 1.7 mg/dl (1.7-2.4); Phosphorus 2.9 mg/dl (2.5-4.9); Potassium 4.1 mmol/L (3.5-5.1)
[2022-06-08] MEDS: LORATADINE 10 MG TAB PO SCH (08:38)
[2022-06-08] MEDS: DOXYCYCLINE HYCLATE 100 MG CAP PO SCH ×2 (08:39→21:32)
[2022-06-08] MEDS: UMECLIDINIUM BROMIDE 62.5MCG/BLISTER 7 PUFFS/INHALER INH SCH (08:39)
[2022-06-08] MEDS: FLUTICASONE/VILANTEROL 100/25MCG 14 PUFFS/INHALER INH SCH (08:39)
[2022-06-08] MEDS: ENOXAPARIN INJ 40 MG/0.4 ML SYR SQ SCH (08:39)
[2022-06-08] MEDS: predniSONE 20 MG TAB PO SCH (08:40)
--- NOTE | 2022-06-08 11:23 | Hospitalist Progress Note ---
Date of Service June 08, 2022 Assessment & Plan (1) COPD exacerbation: (2) Acute respiratory failure with hypoxia: Plan: Presented with SOB Noted to be hypoxic CXR did not show any acute findings Pulm recs noted Continue nebs and incruse ellipta Fluticasone/vilanterol added Will ensure dc on LABA/LAMA/ICS combination Get CTA chest for better assessment and also rule out PE Continue prednisone Continue doxycycline Counseled on smoking cessation Wean oxygen as tolerated to goal of spO2 88-92%. May need oxygen on dc Needs to follow up pulm outpatient for PFT and management (3) DVT prophylaxis: Plan: Lovenox sq I spent a total of 45 minutes coordinating, documenting and providing care for this patient excluding time spent in performance of separately billed services Admission and Anticipated Discharge Date Admission Date: June 05, 2022 Subjective Patient seen and examined. Reports some mild improvement in wheezing and shortness of breath. Reports mild dry cough today Still has occasional chest pain when wheezing becomes severe. Denied fevers, chills, nausea, vomiting, abdominal pain Denies dysuria, frequency or urgency Physical Exam Constitutional: + well hydrated; no acute distress Eyes: PERRL, conjunctivae normal, anicteric sclerae ENMT: external ear and nose normal, oropharynx normal Respiratory: normal respiratory effort; no respiratory distress Generalized wheezing with prolonged exp phase Cardiovascular: Rate/Rhythm: regular rate and regular rhythm S1 S2 Gastrointestinal (Abdomen): normal bowel sounds, soft, nontender, no hepatosplenomegaly Musculoskeletal: no cyanosis or clubbing, extremities motor strength 5/5 Neurologic: PERRL, EOMI, accommodation nl, no face palsy, no dysarthria Psychiatric: A+Ox3, euthymic affect Results & Data Results & Data Vital Signs (Past 12 Hours) Vital Signs Temp Pulse Pulse Resp BP Pulse Ox Pulse Ox 06/08/22 11:02 36.4 C L 99 H 20 121/76 94 06/08/22 08:00 06/08/22 08:45 36.5 C 105 H 14 146/86 H 93 06/08/22 07:33 36.0 C L 99 H 26 H 158/102 H 99 06/08/22 07:13 85 06/08/22 07:05 101 H 18 94 06/08/22 04:00 36.3 C L 97 H 22 127/76 94 06/08/22 02:00 93 O2 Del Method O2 Del Method O2 Flow Rate O2 Flow Rate 06/08/22 11:02 Nasal Cannula 3 06/08/22 08:00 Nasal Cannula 3 06/08/22 08:45 Nasal Cannula 3 06/08/22 07:33 Room Air 3 06/08/22 07:13 06/08/22 07:05 Nasal Cannula 3 06/08/22 04:00 Nasal Cannula 2 06/08/22 02:00 Room Air 3 Laboratory Results Abnormal lab results 06/08/22 06/08/22 06/08/22 Range/Units 07:47 07:47 07:47 RBC 4.67 L (4.70-6.10) M/uL ABG pCO2 60 H (35-46) mmHg ABG pO2 78 L (80-95) mmHg ABG HCO3 36 H (19-24) mmol/L ABG O2 Saturation 96.6 H (90-95) % ABG Base Excess 9.1 H (-9-1.8) mEq/L Sodium 135 L (136-145) mmol/L Chloride 94 L (98-107) mmol/L Carbon Dioxide 35 H (21-32) mmol/L BUN/Creatinine Ratio 29.4 H (10-20) Glucose 110 H (70-99(Fasting)) mg/dl
--- NOTE | 2022-06-08 12:58 | Pulmonology Progress Note ---
Date of Service June 08, 2022 Assessment & Plan (1) COPD exacerbation: (2) Respiratory failure with hypoxia and hypercapnia: (3) Tobacco abuse counseling: Plan IMPRESSION: 71-year-old male with significant past medical history of COPD who had previously undergone wedge resection for upper lobe predominant emphysematous blebs with subsequent chemical pleurodesis in 2010 presenting with acute COPD exacerbation with hypoxia and hypercapnia. RECOMMENDATIONS: 1. COPD exacerbation - * Patient continues on p.o. steroids. We will continue for the completion of 7- day course. * Patient was using Breo and Anoro Ellipta. Patient does not feel as though he is able to achieve successful use of the inhaler secondary to his current COPD exacerbation. * Will hold on the Breo and Anoro and placed the patient on budesonide and Perforomist in the interim. * Can continue with albuterol nebulizers. He has persistent wheezing today. * Morning ABG demonstrated CO2 retention with a CO2 of 60. * Likely representing severe COPD with emphysematous lungs and poor ventilation resulting in ongoing CO2 retention which is contributing the patient's hypoxia and current COPD exacerbation. Patient will benefit from AVAPS use at home. This was discussed with case management who will coordinate. * Patient with chronic respiratory failure due to COPD now requires NIV for home. Has been considered and ruled out due to its inability to provide adequate ventilatory support. An IV provides AVAPSAE mode longer expiratory time to reduce effects of flow limitation and air trapping. This will decrease the work of breathing and decreased CO2. Continuous alarm systems and battery backup is also required in the event of power outage. It must be understood that patient is a severe risk of respiratory failure and serious harm to pulmonary patient wellbeing will incur without the use of NIV at home. Removal of the NIV would potentially cause rehospitalization and even possible . * Orders placed for AVAPS while in the hospital to see if the patient improves. Thank you for allowing us to participate in the care of this patient. We will continue to follow along while the patient remains inpatient. Admission and Anticipated Discharge Date Admission Date: June 05, 2022 Subjective Patient was seen and evaluated at bedside today. He reports feeling more tired today, but does endorse improved breathing. He states that he has had increased production of his cough, but reports that this has seemed to make his breathing feel better. He has persistent wheezing. He reports that he slept well last night. Otherwise, he reports slow improvement Review of Systems Review of Systems: A complete 6 point review of systems was reviewed with the patient with pertinent positives and negatives as per history of present illness. All else were negative. Physical Exam Physical Exam: VITAL SIGNS - Vital signs and nursing notes were reviewed. GENERAL - 71-year-old male appearing his stated age who is in no acute distress. Communicates well with provider and answers questions appropriately. NOSE - Midline and without cyanosis. MOUTH/OROPHARYNX - Without perioral cyanosis. LUNGS - Auscultation reveals diffuse inspiratory and expiratory wheezes throughout. CARDIAC - RRR with S1/S2. No murmur, rubs, or gallops appreciated. ABDOMEN - Abdominal inspection demonstrates flat abdomen. BS normoactive all four quadrants. No tenderness, palpable masses, or ascites noted. EXTREMITIES - No peripheral cyanosis. No pretibial edema present. +3/5 radial palpated throughout. PSYCH - A&Ox3 and cooperates fully with examiner. Pt is very pleasant and interacts well with examiner. Results & Data Results & Data Vital Signs (Past 12 Hours) Vital Signs Temp Pulse Pulse Resp BP Pulse Ox Pulse Ox 06/08/22 12:33 92 06/08/22 11:02 36.4 C L 99 H 20 121/76 94 06/08/22 08:00 06/08/22 08:45 36.5 C 105 H 14 146/86 H 93 06/08/22 07:33 36.0 C L 99 H 26 H 158/102 H 99 06/08/22 07:13 85 06/08/22 07:05 101 H 18 94 06/08/22 04:00 36.3 C L 97 H 22 127/76 94 06/08/22 02:00 93 O2 Del Method O2 Del Method O2 Flow Rate O2 Flow Rate 06/08/22 12:33 Nasal Cannula 2 06/08/22 11:02 Nasal Cannula 3 06/08/22 08:00 Nasal Cannula 3 06/08/22 08:45 Nasal Cannula 3 06/08/22 07:33 Room Air 3 06/08/22 07:13 06/08/22 07:05 Nasal Cannula 3 06/08/22 04:00 Nasal Cannula 2 06/08/22 02:00 Room Air 3 PG Care Time/CCT Total # of Minutes Spent Total Time Spent with Patient: Total time spent is greater than 50% in coordination of care (as documented) at patient's floor/unit and/or counseling patient: Coding Level of Care Code 04686 SUB INP/OBS CARE MIN Diagnoses COPD exacerbation J44.1 Respiratory failure with hypoxia and hypercapnia J96.91; J96.92 Tobacco abuse counseling Z71.6
[2022-06-08] MEDS ORDERED: OPTIRAY 320 500ml IV ONE (13:03)
--- NOTE | 2022-06-08 14:05 | CT Scan Report ---
CT angio chest PE protocol CT DOSE: 325.03 mGycm HISTORY: 71 years-old Male with Rule out PE. Reassess lungs. Hypoxia. COPD ex. Acute hypoxia with s hortness of breath TECHNIQUE: Multiple CTA images of the chest were obtained after the intravenous administration of 105 ml Optiray. Coronal and sagittal MIPS were obtained from the axial data set and were submitted for review. All measurements were obtained according to NASCET criteria. A dose lowering technique was u tilized adhering to the principles of ALARA. COMPARISON: Chest radiograph 06/04/2022, chest CT 07/23/2010 FINDINGS: CTA: Heart is normal in size without pericardial effusion. No thoracic aortic aneurysm. There is patency o f the imaged great vessels. Unremarkable pulmonary artery. The segmental and subsegmental branches ar e suboptimally evaluated secondary to contrast bolus timing and respiratory motion artifact. No centr al pulmonary emboli are identified. CT CHEST: Unremarkable thyroid. Partially calcified hyperdense 1.3 x 0.9 x 4.5 cm structure within the anterior mediastinum suggestive of a calcified pleural plaque. Additional partially calcified pleural plaques noted throughout the right hemithorax. No definite lymphadenopathy. There is no pneumothorax, pleural effusion or overt pulmonary edema. Severe emphysema with bronchial wall thickening. Patchy multifocal multilobar distribution of tree-in-bud nodules, greatest in the lmabert ng bases and right lung with patchy bibasilar consolidation. Postoperative changes of the right lung apex. Mild tracheobronchial secretions. Probable cyst of the superior pole left kidney, 1.7 cm. No acute fracture. Mild superior endplate com pression of the T8 vertebral body without retropulsion is chronic. IMPRESSION: 1. Limited exam as above. No central pulmonary emboli identified. 2. Severe emphysema with bronchitis. 3. Multifocal tree-in-bud nodules compatible with an infectious or inflammatory bronchiolitis with mi ld patchy bibasilar consolidation compatible with an associated infectious or inflammatory pneumoniti s. 4. Additional findings as above. ACT 112: Negative or not required by law. The above report was generated using voice recognition software. It may contain grammatical, syntax o r spelling errors. Electronically signed by: Rainer Donovan M.D. 06/08/2022 2:02 PM
[2022-06-08] MEDS: BUDESONIDE 0.5 MG/2 ML VIAL (PULMICORT) NEB SCH (19:59)
[2022-06-08] MEDS: FORMOTEROL 20 MCG/2 ML VIAL NEB SCH (20:06)
[2022-06-08] MEDS: MELATONIN 3 MG TAB PO PRN (21:31)
[2022-06-08] MEDS: ALBUT/IPRATROP 3MG/0.5MG NEB 3 ML VIAL NEB PRN (22:22)
[2022-06-09] MEDS: BUDESONIDE 0.5 MG/2 ML VIAL (PULMICORT) NEB SCH ×2 (07:20→20:09)
[2022-06-09] MEDS: FORMOTEROL 20 MCG/2 ML VIAL NEB SCH ×2 (07:20→20:09)
[2022-06-09 08:18] LABS: Hematocrit (blood only) 44.2 % (42.0-52.0); Hemoglobin 15.2 g/dl (14.0-18.0); Mean Corpuscular Hemoglobin 31.9 pg (25.0-34.0); Mean Corpuscular Hgb Conc 34.4 g/dL (32.0-36.0); Mean Corpuscular Volume 92.7 fL (80.0-100.0); Mean Platelet Volume 9.8 fL (9.4-12.4); Platelet Count 151 K/uL (130-400); RDW Coefficient of Variation 11.7 % (11.5-14.5); RDW Standard Deviation 40.3 fL (36.4-46.3); Red Blood Count 4.77 M/uL (4.70-6.10); White Blood Count 9.98 K/ul (4.8-10.8)
--- NOTE | 2022-06-09 08:28 | Hospitalist Progress Note ---
Date of Service June 09, 2022 Assessment & Plan (1) COPD exacerbation: (2) Acute respiratory failure with hypoxia: Plan: Presented with SOB after a cold last week. Noted to be hypoxic CXR did not show any acute findings, likely viral in nature. Pulm recs noted Continue nebs and incruse ellipta Fluticasone/vilanterol added-->changed to budesonide and performist given the nebs are working better for him. Will ensure dc on LABA/LAMA/ICS combination Get CTA chest for better assessment and also rule out PE Continue prednisone to complete 7 day couse. Continue doxycycline Counseled on smoking cessation Wean oxygen as tolerated to goal of spO2 88-92%. May need oxygen on dc Would benefit from home NIV per pulm who is trying to get this authorized for use at discharge. Needs to follow up pulm outpatient for PFT and management (3) DVT prophylaxis: Plan: Lovenox sq Full Code Dispo- to home when breathing improved and NIV mask set up. Possibly 1-2 days more. Estela Love DO [facility] Hospitalist Admission and Anticipated Discharge Date Admission Date: June 05, 2022 Subjective 71 yo M with COPD exaceerbation Feels improved today with treatment Still requiring small amount of supplemental oxygen has a sore throat that is improved wtih josefina Review of Systems Review of Systems: All systems were reviewed and negative except as indicated on subjective above. Physical Exam Physical Exam: CONSTITUTIONAL: WNWD, vitals as above, generally well-appearing, NAD EYES: normal conjunctivae, no scleral icterus ENT: external ear and nose normal, MMM NECK: trachea midline, RESPIRATORY: min crackles and wheezing present throughout all lung villalta, normal respiratory effort CARDIOVASCULAR: regular rate and rhythm, S1 and 2 heard without murmurs, gallops or rubs, no JVD, no peripheral edema CHEST: inspection of chest was normal GASTROINTESTINAL: soft, nontender, ND no guarding MUSCULOSKELETAL: strength 5/5 throughout, head is normocephalic and atraumatic SKIN: warm and dry NEUROLOGIC: CN 2-12 grossly intact, no sensory deficit, normal cognition, normal speech, no tremor PSYCHIATRIC: alert cooperative and oriented to person, place and time. Euthymic mood, makes good eye contact, language grossly intact, recent and remote memory grossly intact. Results & Data Results & Data Vital Signs (Past 12 Hours) Vital Signs Temp Pulse Pulse Resp BP BP Pulse Ox 06/09/22 08:02 102 H 20 90 06/09/22 07:39 36.5 C 97 H 16 126/78 96 06/09/22 07:10 92 H 06/09/22 02:57 37.0 C 101 H 18 128/75 89 L 06/09/22 01:27 105 H 06/09/22 01:17 06/08/22 23:22 101 H 26 H 93 06/08/22 22:00 36.5 C 101 H 18 133/77 93 06/08/22 22:22 06/08/22 21:00 O2 Del Method O2 Flow Rate 06/09/22 08:02 Nasal Cannula 06/09/22 07:39 Nasal Cannula 2 06/09/22 07:10 06/09/22 02:57 Nasal Cannula 2 06/09/22 01:27 06/09/22 01:17 Nasal Cannula 1.5 06/08/22 23:22 06/08/22 22:00 Room Air 06/08/22 22:22 CPAP, Other 06/08/22 21:00 Nasal Cannula 1.5 Laboratory Results Short CBC 06/08/22 06/09/22 Range/Units 07:47 07:45 WBC 10.53 9.98 (4.8-10.8) K/ul Hgb 14.8 15.2 (14.0-18.0) g/dl Hct 42.2 44.2 (42.0-52.0) % Plt Count 150 151 (130-400) K/uL BMP 06/08/22 07:47 Sodium 135 L Potassium 4.1 Chloride 94 L Carbon Dioxide 35 H BUN 20 Creatinine 0.68 Glucose 110 H Calcium 9.3 Medications Administered Current Inpatient Medications Acetaminophen (Acetaminophen 325 Mg Tab) 650 mg PO Q4H PRN PRN Reason: Pain or Fever Stop: 07/05/22 02:39 Last Admin: 06/08/22 07:32 Dose: 650 mg Albuterol (Albuterol Hfa 8 Gm Inhaler) 2 puffs INH Q4H PRN PRN Reason: Shortness Of Breath Or Wheezin Stop: 07/05/22 02:39 Albuterol (Albut/Ipratrop 3mg/0.5mg Neb 3 Ml Vial) 3 ml NEB QIDR [facility]; Protocol Stop: 07/05/22 06:59 Last Admin: 06/08/22 22:21 Dose: 3 ml Albuterol (Albut/Ipratrop 3mg/0.5mg Neb 3 Ml Vial) 3 ml NEB Q4R PRN; Protocol PRN Reason: Shortness Of Breath Or Wheezing Stop: 07/05/22 02:39 Last Admin: 06/08/22 22:22 Dose: 3 ml Budesonide (Budesonide 0.5 Mg/2 Ml Vial (Pulmicort)) 0.5 mg NEB BIDR [facility] Stop: 07/08/22 18:59 Last Admin: 06/09/22 07:20 Dose: 0.5 mg Doxycycline Hyclate (Doxycycline Hyclate 100 Mg Cap) 100 mg PO BID [facility] Stop: 06/12/22 08:59 Last Admin: 06/08/22 21:32 Dose: 100 mg Enoxaparin Sodium (Enoxaparin Inj 40 Mg/0.4 Ml Syr) 40 mg SQ Q24H [facility] Stop: 07/05/22 08:59 Last Admin: 06/08/22 08:39 Dose: 40 mg Fluticasone/Vilanterol (Fluticasone/Vilanterol 100/25mcg 14 Puffs/Inhaler) 1 puffs INH DAILY [facility] Stop: 07/07/22 14:29 Last Admin: 06/08/22 08:39 Dose: 1 puffs Formoterol Fumarate (Formoterol 20 Mcg/2 Ml Vial) 20 mcg NEB BID [facility] Stop: 07/08/22 20:59 Last Admin: 06/09/22 07:20 Dose: 20 mcg Hydroxyzine HCl (Hydroxyzine Hcl 25 Mg Tab) 25 mg PO BID PRN PRN Reason: anxiety Stop: 07/07/22 10:36 Last Admin: 06/07/22 10:53 Dose: 25 mg Loratadine (Loratadine 10 Mg Tab) 10 mg PO QAM [facility] Stop: 07/06/22 09:29 Last Admin: 06/08/22 08:38 Dose: 10 mg Melatonin (Melatonin 3 Mg Tab) 6 mg PO HS PRN PRN Reason: Sleep Stop: 07/05/22 02:51 Last Admin: 06/08/22 21:31 Dose: 6 mg Nitroglycerin (Nitroglycerin Sl 0.4 Mg/Tab Tab) 0.4 mg SL UD PRN PRN Reason: Chest Pain Stop: 07/05/22 02:39 Polyethylene Glycol (Polyethylene (Miralax) 17 Gm Pack) 17 gm PO DAILY PRN PRN Reason: Constipation Stop: 07/05/22 02:39 Prednisone (Prednisone 20 Mg Tab) 40 mg PO QAM [facility] Stop: 07/08/22 08:59 Last Admin: 06/08/22 08:40 Dose: 40 mg Umeclidinium Clarkson (Umeclidinium Clarkson 62.5mcg/Blister 7 Puffs/Inhaler) 1 puffs INH DAILY [facility] Stop: 07/05/22 08:59 Last Admin: 06/08/22 08:39 Dose: 1 puffs
[2022-06-09 08:50] LABS: BUN Creatinine Ratio 22.7 (10-20); Calcium 9.3 mg/dl (8.6-10.3); Creatinine Clr Calc Pharmacy 76.3 ml/min; Est GFR (Non-African American) 92.3 ml/min; Magnesium 1.8 mg/dl (1.7-2.4); Phosphorus 3.5 mg/dl (2.5-4.9)
[2022-06-09] MEDS: LORATADINE 10 MG TAB PO SCH (08:52)
[2022-06-09] MEDS: predniSONE 20 MG TAB PO SCH (08:52)
[2022-06-09] MEDS: DOXYCYCLINE HYCLATE 100 MG CAP PO SCH ×2 (08:52→20:51)
[2022-06-09] MEDS: ENOXAPARIN INJ 40 MG/0.4 ML SYR SQ SCH (08:52)
[2022-06-09] MEDS ORDERED: COUGH DROP (SUGAR FREE) LOZ 24 LOZ/1 BOX BUCCAL PRN (09:42)
[2022-06-09] MEDS: ALBUT/IPRATROP 3MG/0.5MG NEB 3 ML VIAL NEB SCH ×3 (11:11→19:58)
--- NOTE | 2022-06-09 17:15 | Pulmonology Progress Note ---
Date of Service June 09, 2022 Assessment & Plan (1) COPD exacerbation: (2) Respiratory failure with hypoxia and hypercapnia: (3) Tobacco abuse counseling: Plan Attending: Dr. Kenney IMPRESSION: 71-year-old male with significant past medical history of COPD who had previously undergone wedge resection for upper lobe predominant emphysematous blebs with subsequent chemical pleurodesis in 2010 presenting with acute COPD exacerbation with hypoxia and hypercapnia. Patient trialed on BiPAP. Attempting to adjust the mask at night. Continues with cough and sputum production but seems to have some improvement as compared to yesterday per his report and corroborated by his . RECOMMENDATIONS: 1. COPD exacerbation - * Currently on prednisone 40 mg p.o. daily. * Home medications include Spiriva HandiHaler and as needed albuterol. Patient placed on Breo Ellipta and Anoro Ellipta on admission. This was held as patient was not able to have successful insulation secondary to acute illness. Continue on budesonide and Perforomist nebulized treatments while inpatient until patient is able to take powdered inhaler. * Persistent elevation of PCO2. Continue to encourage use of BiPAP while inpatient. * CT chest results reviewed with patient and at bedside * Repeat ABG in the morning * Likely representing severe COPD with emphysematous lungs and poor ventilation resulting in ongoing CO2 retention which is contributing the patient's hypoxia and current COPD exacerbation. Patient will benefit from AVAPS use at home. This was discussed with case management who will coordinate. * Patient with chronic respiratory failure due to COPD now requires NIV for home. Has been considered and ruled out due to its inability to provide adequate ventilatory support. An IV provides AVAPSAE mode longer expiratory time to reduce effects of flow limitation and air trapping. This will decrease the work of breathing and decreased CO2. Continuous alarm systems and battery backup is also required in the event of power outage. It must be understood that patient is a severe risk of respiratory failure and serious harm to pulmonary patient wellbeing will incur without the use of NIV at home. Removal of the NIV would potentially cause rehospitalization and even possible . * Orders placed for AVAPS while in the hospital to see if the patient improves. 2. Tobacco abuse history - * Patient has been able to quit smoking in the past when visiting family for up to several weeks at a time. Importance of tobacco abstention discussed with patient. He is committed to stop smoking completely. His is very supportive and will assist in this endeavor when patient is discharged home. Thank you for allowing us to participate in the care of this patient. We will continue to follow along while the patient remains inpatient. Admission and Anticipated Discharge Date Admission Date: June 05, 2022 Subjective Attending: Dr. Kenney Patient seen and examined in room 277 with his present for the entire examination and interview. Patient states he is starting to feel better. He still has significant cough and sputum production. Still feels as though the sputum is thick and he is having trouble clearing it. BiPAP was started last night but patient only used it for about 10 minutes. He stated that he could not get used to the mask. Patient is encouraged to use a mask for 5 to 10 minutes at a time while awake to adjust the straps and the mask to try and get used to it for nighttime sleeping. Patient denies any fever, chills, sweats, rigors. No hemoptysis. No chest pain or tightness. Review of Systems Review of Systems: A total of 10 systems was reviewed and is negative other than as listed in the HPI Physical Exam Physical Exam: GENERAL : No acute distress EYES: No icterus, gaze conjugate NOSE: No evidence of epistaxis MOUTH: No lesions or candidiasis NECK: Supple LUNGS: Rhonchi appreciated in the upper villalta. Patient with coarse Rales in the bases. No appreciation of bronchospasm. HEART: Regular, rate controlled ABDOMEN: Soft, NT, ND, BS Present EXTREMITIES: No LE edema, pedal pulses intact NEURO: A&OX3 Results & Data Results & Data Vital Signs (Past 12 Hours) Vital Signs Temp Pulse Pulse Resp BP BP Pulse Ox 06/09/22 16:00 36.5 C 97 H 18 128/80 97 06/09/22 15:59 101 H 06/09/22 15:38 101 H 20 94 06/09/22 09:00 06/09/22 11:12 102 H 20 95 06/09/22 08:02 102 H 20 90 06/09/22 07:39 36.5 C 97 H 16 126/78 96 06/09/22 07:10 92 H O2 Del Method O2 Flow Rate 06/09/22 16:00 BiPAP 06/09/22 15:59 06/09/22 15:38 BiPAP 2 06/09/22 09:00 Nasal Cannula 1.5 06/09/22 11:12 Nasal Cannula 2 06/09/22 08:02 Nasal Cannula 06/09/22 07:39 Nasal Cannula 2 06/09/22 07:10 PG Care Time/CCT Total # of Minutes Spent Total Time Spent with Patient: Total time spent is greater than 50% in coordination of care (as documented) at patient's floor/unit and/or counseling patient: 30 Coding Level of Care Code 74458 SUB INP/OBS CARE 2/35MIN Diagnoses COPD exacerbation J44.1 Respiratory failure with hypoxia and hypercapnia J96.91; J96.92 Tobacco abuse counseling Z71.6
[2022-06-09] MEDS: MELATONIN 3 MG TAB PO PRN (20:53)
[2022-06-10] MEDS: FORMOTEROL 20 MCG/2 ML VIAL NEB SCH ×2 (07:21→19:38)
[2022-06-10] MEDS: BUDESONIDE 0.5 MG/2 ML VIAL (PULMICORT) NEB SCH ×2 (07:21→19:39)
[2022-06-10] MEDS: ALBUT/IPRATROP 3MG/0.5MG NEB 3 ML VIAL NEB SCH ×4 (07:21→19:39)
[2022-06-10] MEDS: DOXYCYCLINE HYCLATE 100 MG CAP PO SCH ×2 (07:45→20:36)
[2022-06-10] MEDS: LORATADINE 10 MG TAB PO SCH (07:47)
[2022-06-10] MEDS: predniSONE 20 MG TAB PO SCH (07:48)
[2022-06-10] MEDS: ENOXAPARIN INJ 40 MG/0.4 ML SYR SQ SCH (07:49)
--- NOTE | 2022-06-10 11:08 | Pulmonology Progress Note ---
Date of Service June 10, 2022 Assessment & Plan (1) COPD exacerbation: (2) Respiratory failure with hypoxia and hypercapnia: (3) Tobacco abuse counseling: Plan Attending: Dr. Kenney IMPRESSION: 71-year-old male with significant past medical history of COPD who had previously undergone wedge resection for upper lobe predominant emphysematous blebs with subsequent chemical pleurodesis in 2010 presenting with acute COPD exacerbation with hypoxia and hypercapnia. RECOMMENDATIONS: 1. COPD exacerbation - * Currently on prednisone 40 mg p.o. daily. Would complete entire 7 day course. * Patient doing well on budesonide and Perforomist nebulizer treatments. He is much less bronchospastic on exam today moving air better. * Would discharge the patient on a ICS/LABA/LAMA inhaler for home (insurance coverage dependant). * ABG with improved CO2 today. Would continue with AVAPS as tolerated. * CO2 Retention - Improving with AVAPS: * Likely representing severe COPD with emphysematous lungs and poor ventilation resulting in ongoing CO2 retention which is contributing the patient's hypoxia and current COPD exacerbation. Patient will benefit from AVAPS use at home. This was discussed with case management who will coordinate. * Patient with chronic respiratory failure due to COPD now requires NIV for home. Has been considered and ruled out due to its inability to provide adequate ventilatory support. An IV provides AVAPSAE mode longer expiratory time to reduce effects of flow limitation and air trapping. This will decrease the work of breathing and decreased CO2. Continuous alarm systems and battery backup is also required in the event of power outage. It must be understood that patient is a severe risk of respiratory failure and serious harm to pulmonary patient wellbeing will incur without the use of NIV at home. Removal of the NIV would potentially cause rehospitalization and even possible . * Patient showing clinical improvement on AVAPS. This will benefit the patient moving forward. * We would be happy to follow up with the patient in the outpatient setting moving forward. 2. Tobacco abuse history - * Patient has been able to quit smoking in the past when visiting family for up to several weeks at a time. Importance of tobacco abstention discussed with patient. He is committed to stop smoking completely. His is very supportive and will assist in this endeavor when patient is discharged home. Thank you for allowing us to participate in the care of this patient. Pulmonary medicine will sign off at this time. We will be happy to see the patient in our outpatient practice moving forward. Please feel free to contact us directly for any questions. Admission and Anticipated Discharge Date Admission Date: June 05, 2022 Subjective Patient seen and evaluated bedside today. He reports feeling better today and is with less cough and shortness of breath. He was able to tolerate the AVAPS for little bit longer last night. He is agreeable to continue this moving forward. He reports ambulated the rodriguez yesterday with his . He plans on doing this again today. Review of Systems Review of Systems: A total of 10 systems was reviewed and is negative other than as listed in the HPI Physical Exam Physical Exam: VITAL SIGNS - Vital signs and nursing notes were reviewed. GENERAL - 71-year-old male appearing his stated age who is in no acute distress. Communicates well with provider and answers questions appropriately. NOSE - Midline and without cyanosis. MOUTH/OROPHARYNX - Without perioral cyanosis. LUNGS - Auscultation reveals diffuse inspiratory and expiratory wheezes throughout. CARDIAC - RRR with S1/S2. No murmur, rubs, or gallops appreciated. ABDOMEN - Abdominal inspection demonstrates flat abdomen. BS normoactive all four quadrants. No tenderness, palpable masses, or ascites noted. EXTREMITIES - No peripheral cyanosis. No pretibial edema present. +3/5 radial palpated throughout. PSYCH - A&Ox3 and cooperates fully with examiner. Pt is very pleasant and interacts well with examiner. Results & Data Results & Data Vital Signs (Past 12 Hours) Vital Signs Temp Pulse Resp BP BP Pulse Ox Pulse Ox 06/10/22 11:00 84 16 94 06/10/22 10:53 36.7 C 84 18 119/78 94 06/10/22 10:00 06/10/22 08:58 36.7 C 93 H 16 117/78 94 06/10/22 07:21 96 H 18 95 06/10/22 04:44 95 06/09/22 23:37 36.5 C 86 20 115/76 96 O2 Del Method O2 Del Method O2 Flow Rate O2 Flow Rate 06/10/22 11:00 Room Air 06/10/22 10:53 Room Air 06/10/22 10:00 Nasal Cannula 2 06/10/22 08:58 Nasal Cannula 2 06/10/22 07:21 Nasal Cannula 2 06/10/22 04:44 Nasal Cannula 2 06/09/22 23:37 Nasal Cannula 2 PG Care Time/CCT Total # of Minutes Spent Total Time Spent with Patient: Total time spent is greater than 50% in coordination of care (as documented) at patient's floor/unit and/or counseling patient: Coding Level of Care Code 89050 SUB INP/OBS CARE 3/50MIN Diagnoses COPD exacerbation J44.1 Respiratory failure with hypoxia and hypercapnia J96.91; J96.92 Tobacco abuse counseling Z71.6
--- NOTE | 2022-06-10 17:19 | Hospitalist Progress Note ---
Date of Service June 10, 2022 Assessment & Plan (1) COPD exacerbation: (2) Acute respiratory failure with hypoxia: Plan: Presented with SOB after a cold last week. Noted to be hypoxic-improved CXR did not show any acute findings, likely viral in nature. Pulm recs noted Continue nebs and incruse ellipta Fluticasone/vilanterol added-->changed to budesonide and performist given the nebs are working better for him. Will ensure dc on LABA/LAMA/ICS combination Get CTA chest for better assessment and also rule out PE Continue prednisone to complete 7 day couse. Continue doxycycline Counseled on smoking cessation Wean oxygen as tolerated to goal of spO2 88-92%. May need oxygen on dc Would benefit from home NIV per pulm who is trying to get this authorized for use at discharge. Needs to follow up pulm outpatient for PFT and management (3) DVT prophylaxis: Plan: Lovenox sq Full Code Dispo- to home when breathing improved and NIV mask set up. Possibly 1-2 days more. Estela Love DO [facility] Hospitalist Admission and Anticipated Discharge Date Admission Date: June 05, 2022 Subjective 71 yo M with COPD exacerbation Feels improved today with treatment Still requiring small amount of supplemental oxygen sore throat resolved. He feels he is not quite ready to return home at bedside and verbalized understanding of the plan. Review of Systems Review of Systems: All systems were reviewed and negative except as indicated on subjective above. Physical Exam Physical Exam: CONSTITUTIONAL: WNWD, vitals as above, generally well-appearing, NAD EYES: normal conjunctivae, no scleral icterus ENT: external ear and nose normal, MMM NECK: trachea midline, RESPIRATORY: clear to auscultation throughout, normal respiratory effort CARDIOVASCULAR: regular rate and rhythm, S1 and 2 heard without murmurs, gallops or rubs, no JVD, no peripheral edema CHEST: inspection of chest was normal GASTROINTESTINAL: soft, nontender, ND no guarding MUSCULOSKELETAL: strength 5/5 throughout, head is normocephalic and atraumatic SKIN: warm and dry NEUROLOGIC: CN 2-12 grossly intact, no sensory deficit, normal cognition, normal speech, no tremor PSYCHIATRIC: alert cooperative and oriented to person, place and time. Euthymic mood, makes good eye contact, language grossly intact, recent and remote memory grossly intact. Results & Data Results & Data Vital Signs (Past 12 Hours) Vital Signs Temp Pulse Resp BP Pulse Ox O2 Del Method O2 Flow Rate 06/10/22 15:41 36.8 C 94 H 20 110/74 92 Nasal Cannula 2 06/10/22 15:18 93 H 18 95 Nasal Cannula 1 06/10/22 11:00 84 16 94 Room Air 06/10/22 10:53 36.7 C 84 18 119/78 94 Room Air 06/10/22 10:00 Nasal Cannula 2 06/10/22 08:58 36.7 C 93 H 16 117/78 94 Nasal Cannula 2 06/10/22 07:21 96 H 18 95 Nasal Cannula 2 Medications Administered Current Inpatient Medications Acetaminophen (Acetaminophen 325 Mg Tab) 650 mg PO Q4H PRN PRN Reason: Pain or Fever Stop: 07/05/22 02:39 Last Admin: 06/08/22 07:32 Dose: 650 mg Albuterol (Albuterol Hfa 8 Gm Inhaler) 2 puffs INH Q4H PRN PRN Reason: Shortness Of Breath Or Wheezin Stop: 07/05/22 02:39 Albuterol (Albut/Ipratrop 3mg/0.5mg Neb 3 Ml Vial) 3 ml NEB QIDR KIMBERLY; Protocol Stop: 07/05/22 06:59 Last Admin: 06/10/22 15:17 Dose: 3 ml Albuterol (Albut/Ipratrop 3mg/0.5mg Neb 3 Ml Vial) 3 ml NEB Q4R PRN; Protocol PRN Reason: Shortness Of Breath Or Wheezing Stop: 07/05/22 02:39 Last Admin: 06/08/22 22:22 Dose: 3 ml Budesonide (Budesonide 0.5 Mg/2 Ml Vial (Pulmicort)) 0.5 mg NEB BIDR KIMBERLY Stop: 07/08/22 18:59 Last Admin: 06/10/22 07:21 Dose: 0.5 mg Doxycycline Hyclate (Doxycycline Hyclate 100 Mg Cap) 100 mg PO BID REPLACED BY [facility] Stop: 06/12/22 08:59 Last Admin: 06/10/22 07:45 Dose: 100 mg Enoxaparin Sodium (Enoxaparin Inj 40 Mg/0.4 Ml Syr) 40 mg SQ Q24H REPLACED BY [facility] Stop: 07/05/22 08:59 Last Admin: 06/10/22 07:49 Dose: 40 mg Fluticasone/Vilanterol (Fluticasone/Vilanterol 100/25mcg 14 Puffs/Inhaler) 1 puffs INH DAILY REPLACED BY [facility] Stop: 07/07/22 14:29 Last Admin: 06/08/22 08:39 Dose: 1 puffs Formoterol Fumarate (Formoterol 20 Mcg/2 Ml Vial) 20 mcg NEB BID REPLACED BY [facility] Stop: 07/08/22 20:59 Last Admin: 06/10/22 07:21 Dose: 20 mcg Guaifenesin/Codeine Phosphate (Guaifenesin/Codeine 200mg/20mg 10ml Udc) 10 ml PO Q6H PRN PRN Reason: Cough Stop: 07/09/22 09:41 Last Admin: 06/10/22 13:52 Dose: 10 ml Hydroxyzine HCl (Hydroxyzine Hcl 25 Mg Tab) 25 mg PO BID PRN PRN Reason: anxiety Stop: 07/07/22 10:36 Last Admin: 06/07/22 10:53 Dose: 25 mg Loratadine (Loratadine 10 Mg Tab) 10 mg PO QAM REPLACED BY [facility] Stop: 07/06/22 09:29 Last Admin: 06/10/22 07:47 Dose: 10 mg Melatonin (Melatonin 3 Mg Tab) 6 mg PO HS PRN PRN Reason: Sleep Stop: 07/05/22 02:51 Last Admin: 06/09/22 20:53 Dose: 6 mg Menthol (Cough Drop (Sugar Free) Eliseo 24 Eliseo/1 Box) 1 eliseo BUCCAL Q2H PRN PRN Reason: Sore Throat Stop: 07/09/22 09:41 Last Admin: 06/09/22 09:59 Dose: 1 eliseo Nitroglycerin (Nitroglycerin Sl 0.4 Mg/Tab Tab) 0.4 mg SL UD PRN PRN Reason: Chest Pain Stop: 07/05/22 02:39 Polyethylene Glycol (Polyethylene (Miralax) 17 Gm Pack) 17 gm PO DAILY PRN PRN Reason: Constipation Stop: 07/05/22 02:39 Prednisone (Prednisone 20 Mg Tab) 40 mg PO QAM REPLACED BY [facility] Stop: 07/08/22 08:59 Last Admin: 06/10/22 07:48 Dose: 40 mg Umeclidinium [place]ier (Umeclidinium [place] 62.5mcg/Blister 7 Puffs/Inhaler) 1 puffs INH DAILY KIMBERLY Stop: 07/05/22 08:59 Last Admin: 06/08/22 08:39 Dose: 1 puffs
[2022-06-10] MEDS: MELATONIN 3 MG TAB PO PRN (20:36)
[2022-06-11 06:56] LABS: Base Excess ABG 14.6 mEq/L (-9-1.8); HCO3 ABG 40 mmol/L (19-24); Oxygen Saturation ABG 99.7 % (90-95); PCO2 ABG 53 mmHg (35-46); PO2 ABG 119 mmHg (80-95); pH ABG 7.49 (7.35-7.45)
[2022-06-11] MEDS: BUDESONIDE 0.5 MG/2 ML VIAL (PULMICORT) NEB SCH (07:10)
[2022-06-11] MEDS: FORMOTEROL 20 MCG/2 ML VIAL NEB SCH (07:10)
[2022-06-11] MEDS: ALBUT/IPRATROP 3MG/0.5MG NEB 3 ML VIAL NEB SCH ×2 (07:10→11:15)
[2022-06-11 07:15] LABS: Allen Test Pos (Pos)
[2022-06-11] MEDS: ACETAMINOPHEN 325 MG TAB PO PRN (09:20)
[2022-06-11] MEDS: ENOXAPARIN INJ 40 MG/0.4 ML SYR SQ SCH (09:20)
[2022-06-11] MEDS: DOXYCYCLINE HYCLATE 100 MG CAP PO SCH (09:20)
[2022-06-11] MEDS: predniSONE 20 MG TAB PO SCH (09:20)
[2022-06-11] MEDS: LORATADINE 10 MG TAB PO SCH (09:21)
--- NOTE | 2022-06-11 11:57 | Discharge Summary ---
Discharge Summary Date of Service June 11, 2022 Notes For Next Care Provider Medication Changes From Visit Discharged on 2LPM oxygen supplementation with ambulation Doxycycline x 3 days Prednisone 40mg daily x 3 days Duonebs provided with new nebulizer machine Now on Trilog home non-invasive ventilator at nights Apolonia Ellipta once INH daily. Principal Dx & Hospital Course #1 = Principal Diagnosis (1) COPD exacerbation: (2) Acute respiratory failure with hypoxia: Presented with SOB after a cold last week. Noted to be hypoxic-improved CXR did not show any acute findings, likely viral in nature. Pulm recs noted Continue nebs and incruse ellipta Fluticasone/vilanterol added-->changed to budesonide and performist given the nebs are working better for him. Will ensure dc on LABA/LAMA/ICS combination Get CTA chest for better assessment and also rule out PE Continue prednisone to complete 7 day couse. Continue doxycycline Counseled on smoking cessation Wean oxygen as tolerated to goal of spO2 88-92%. May need oxygen on dc Would benefit from home NIV per pulm who is trying to get this authorized for use at discharge. Needs to follow up pulm outpatient for PFT and management (3) DVT prophylaxis: Lovenox sq Full Code Dispo- to home when breathing improved and NIV mask set up. Possibly 1-2 days more. Estela Love DO [facility] Hospitalist Discharge Exam CONSTITUTIONAL: WNWD, vitals as above, generally well-appearing, NAD EYES: normal conjunctivae, no scleral icterus ENT: external ear and nose normal, MMM NECK: trachea midline, RESPIRATORY: clear to auscultation throughout, normal respiratory effort CARDIOVASCULAR: regular rate and rhythm, S1 and 2 heard without murmurs, gallops or rubs, no JVD, no peripheral edema CHEST: inspection of chest was normal GASTROINTESTINAL: soft, nontender, ND no guarding MUSCULOSKELETAL: strength 5/5 throughout, head is normocephalic and atraumatic SKIN: warm and dry NEUROLOGIC: CN 2-12 grossly intact, no sensory deficit, normal cognition, normal speech, no tremor PSYCHIATRIC: alert cooperative and oriented to person, place and time. Euthymic mood, makes good eye contact, language grossly intact, recent and remote memory grossly intact. Updated Medication List Medication Instructions Recorded Confirmed Type Otc Cold And Cough Med 1 tab PO QID PRN Cold Symptoms 06/04/22 06/04/22 History acetaminophen 325 mg-guaifenesin 1 cap PO TID PRN Congestion 06/04/22 06/04/22 History 200 mg capsule albuterol sulfate 90 mcg/actuation 2 puff inhalation Q4H PRN 06/04/22 06/04/22 History aerosol inhaler Shortness Of Breath Or Wheezing ibuprofen 200 mg tablet 400 mg PO TID PRN Pain 06/04/22 06/04/22 History tiotropium bromide 18 mcg capsule 1 cap inhalation DAILY 06/04/22 06/04/22 History with inhalation device (Spiriva with HandiHaler) doxycycline hyclate 100 mg capsule 100 mg PO BID #6 caps 06/11/22 Rx fluticasone fur. 100 mcg-umeclid 1 inh inhalation DAILY #60 ea 06/11/22 Rx 62.5 mcg-vilant 25 mcg inhalat.powder (Trelegy Ellipta) ipratropium 0.5 mg-albuterol 3 mg 3 ml NEB Q6H PRN shortness of 06/11/22 Rx (2.5 mg base)/3 mL nebulization breath or wheezing #90 mL soln prednisone 20 mg tablet 40 mg PO QAM #6 tabs 06/11/22 Rx Hospital Stay Data Consultations 06/04/22 22:16 ED Decision to Admit Stat 06/07/22 10:35 Consult Pulmonology Routine Diagnostic Imagining Performed 06/08/22 11:35 CT angio chest PE protocol Urgent Pending Results Patient Have Any Pending Studies at Discharge: No Discharge Instructions Given to Patient (Per Discharging Provider) Please take all medications as instructed on discharge list below. You will need to take an additional few days of prednisone and doxycycline to complete the course for your exacerbation. Please continue to use nebulized duoneb (albuterol/ipatropium) for rescue breathing at home in case of emergency. You are being provided a new inhaler to use daily for maintenance of good breathing in COPD. Please followup with a supervisor dog license officer to ensure these treatments are working for you. It was a pleasure taking care of you! Please call if you have any questions or problems. You can reach a [facility] hospitalist on duty at [facility] 24 hours a day by calling [phone]. Take care of yourself. Estela Love, [facility] Campus[facility]
== END 2022-06-11 13:09 | disposition home health service (06) | DRG 190 ==
LOC: ED 19:43 → 2N 06-05 00:59 → SUATTDRO 06-05 00:59 → 2N 06-05 02:10